=== PATIENT | male | born 1955 | race Caucasian/White ===

== ENCOUNTER → 2022-08-04 12:42 | Emergency (ER) | payer OTHER ==
[~2022-08-04] VITALS: Ht 182.9 cm; Wt 79.5 kg
[2022-08-04 12:42] VITALS: BP 133/89
[~2022-08-04 12:42] MED LIST: ANGIOMAX 250 MG VIAL IV ONE; CALCIUM GLUC 1,000mg/50ml-NS 50 ML IV ONE; ENOXAPARIN SOD 80 MG/0.8ML SYRINGE SC ONE; FUROSEMIDE 20 MG/2 ML VIAL IV ONE; HEPARIN SODIUM (PORCINE) 5000 UNITS/ML 1ML VIAL ONE; MIDAZOLAM HCL 2MG/2ML 2ml VIAL (1mg/ml) ONE; SODIUM CHL 0.9% 0 ML ONE; SODIUM ZIRCONIUM CYCL 10 GM PAK PO ONE; VERAPAMIL 2.5MG/ML INJ 2ML VIAL IV ONE; fentaNYL CITRATE 100 MCG/2 ML VL ONE
[2022-08-04 13:21] LABS: Basophils # (auto) 0.1 10 ^3/uL (0-0.2); Basophils % (auto) 0.6 % (0.0-2.0); Eosinophils # (auto) 0 10 ^3/uL (0-0.8); Eosinophils % (auto) 0.1 % (0.0-7.0); Hematocrit 32.2 % (41.0-53.0); Hemoglobin 10.7 g/dL (13.5-17.5); Lymphocytes # (auto) 0.3 10 ^3/uL (0.4-5.4); Lymphocytes % (auto) 3.7 % (10.0-50.0); Mean Corpuscular Hemoglobin 30.2 pg (28.0-32.0); Mean Corpuscular Hgb Conc. 33.2 g/dL (32.0-36.0); Mean Corpuscular Volume 90.9 fL (80.0-100.0); Monocytes # (auto) 1.2 10 ^3/uL (0-1.3); Neutrophils # (auto) 7.5 10 ^3/uL (1.6-8.6); Neutrophils % (auto) 82.6 % (37.0-80.0); Red Blood Cells 3.55 10^6/uL (4.5-5.90); Red Cell Distribution Width 16.9 % (11.8-14.3); White Blood Cell 9.1 10^3/uL (4.4-10.8)
[2022-08-04 13:36] LABS: Albumin 3.1 g/dL (3.4-5.0); Calcium 8.9 mg/dL (8.5-10.1); Potassium 5.3 mmol/L (3.5-5.1)
[2022-08-04 13:38] LABS: BUN/Creatinine Ratio 22.6; INR 1.28 (0.9-1.15); Partial Thromboplastin Time 37.9 sec (24.6-33.4)
[2022-08-04 13:41] LABS: Bilirubin, Total 0.6 mg/dL (0.2-1.0); Total Protein 6.1 g/dL (6.4-8.2)
[2022-08-04] MEDS: ALBUTEROL SULF 2.5 MG/0.5ML(0.5%) NEB SOLN NEB ONE ×2 (17:22→17:30)
== END | disposition left against medical advice (07) ==
LOC: ER 12:42 → EDSEX 12:42 → EDBD 12:42
DX: I24.9 Acute ischemic heart disease, unspecified (principal); E87.5 Hyperkalemia; I11.0 Hypertensive heart disease with heart failure; E11.8 Type 2 diabetes mellitus with unspecified complications; F15.90 Other stimulant use, unspecified, uncomplicated; Z88.0 Allergy status to penicillin
CPT/HCPCS: 36415; 71045; 80053; 83880; 84484; 85025; 85379; 85610; 85730; 93005